=== PATIENT | male | born 1980 | race Caucasian/White ===

== ENCOUNTER 2018-01-30 14:51 | Emergency (ER) | payer SELFPAY ==
[~2018-01-30] VITALS: Ht 185.4 cm; Wt 145.4 kg
[2018-01-30 15:00] VITALS: BP 158/91
== END 2018-01-30 15:45 | disposition home or self-care (01) ==
LOC: EMS 14:54
DX: T75.4XXA Electrocution, initial encounter (principal); F17.210 Nicotine dependence, cigarettes, uncomplicated; W86.8XXA Exposure to other electric current, initial encounter; Y93.89 Activity, other specified; Y92.89 Other specified places as the place of occurrence of the external cause; Y99.8 Other external cause status
CPT/HCPCS: 93005; 99283